=== PATIENT | male | born 1985 | race Caucasian/White ===

== ENCOUNTER 2017-04-25 17:40 | Emergency (ER) | payer OTHER ==
--- NOTE | ~2017-04-25 | ER ---
PATIENT'S NAME: AISHA ISAAC [facility] AGE: 31 Y [address] ROOM: [place] [address] LOCATION: [facility] ADMIT DATE: 04/25/2017 ER/Outpatient Report DISCHARGE DATE: 04/25/2017 FAMILY PHYSICIAN: Abdi Patel MD ATTENDING PHYSICIAN: Toya Hinson Time of Arrival: 1747 hours. Time of Evaluation: 1747 hours. CHIEF COMPLAINT: Headache, neck pain, shakiness. HISTORY OF PRESENT ILLNESS: The patient states he has worked outside all day today and he probably has not drunk as much fluid as he should. He states whenever he gets hot, he has problems with vertigo, headache, and vision changes. He states that he was on his way home from work when he developed these symptoms and came straight to the ER. States he feels anxious. He does have meclizine to take at home for his vertigo, but he did not take any. He states he does see Dr. Da Silva for cervical vertigo and trigger-point injection. He also sees Dr. Caroline Bowman for heart problems and Dr. Abdi Patel is his primary provider. He denies having any chest pain at this time, has not felt feverish or chilled, has not had increased sweating. ALLERGIES: NO KNOWN ALLERGIES. CURRENT MEDICATIONS: On his chart and reviewed by me. PAST MEDICAL HISTORY: Cervical vertigo, hypertension, heart murmur. PAST SURGICAL HISTORY: Negative. SOCIAL HISTORY: Denies use of tobacco, drugs, or alcohol. REVIEW OF SYSTEMS: All negative other than those mentioned in the HPI. PHYSICAL EXAMINATION: VITAL SIGNS: He weighed 86 kg, blood pressure is 147/83, pulse of 101, respirations 16, temperature of 98.1, O2 saturation was 98% on room air. PATIENT'S NAME: AISHA ISAAC [facility] AGE: 31 Y [address] ROOM: [place] [address] LOCATION: [facility] ADMIT DATE: 04/25/2017 ER/Outpatient Report DISCHARGE DATE: 04/25/2017 FAMILY PHYSICIAN: Abdi Patel MD ATTENDING PHYSICIAN: Toya Hinson GENERAL: He is awake, alert, and oriented x4. SKIN: [place], warm, and dry. RESPIRATIONS: Even and nonlabored. HEENT: Pupils are equal reactive to light. Negative nystagmus. Extraocular movement is intact. Oropharynx is clear. NECK: Supple. No lymphadenopathy. LUNGS: Lung sounds are clear throughout. HEART: Regular rate and rhythm. ABDOMEN: Soft, nondistended. Bowel sounds are present EXTREMITIES: He walked in with a steady even gait. Moves all extremities strongly and equally. NEURO: Cranial nerves 2 through 12 are grossly intact. LABORATORY DATA AND X-RAYS: Lab work was drawn. CBC is within normal limits. Chem panel showed a potassium of 3.2, otherwise within normal limits. EMERGENCY DEPARTMENT COURSE: Saline lock was initiated and the patient was given a liter of fluids. He was given meclizine 25 mg p.o. With potassium being 3.2, we did give him KCl 40 mEq p.o. He states he was feeling better after the fluids. Reports that he tends to get anxious when he does not feel good but is feeling better. IMPRESSION: 1. Dehydration. 2. Hypokalemia. PLAN: Home, rest, fluids. Discussed with him drinking at least one bottle of Gatorade or Powerade daily at work. He should rest in a cool place tonight and take his meclizine as needed for the dizziness. If his symptoms do not improve in the next 24 to 48 hours, he needs to follow with his primary provider. He verbalized understanding. SHAWNA PRABHAKAR APRN FOR MD YOBANI MEHTA/jacquie /[id number] d: 04/26/17219 t: 04/26/171809, OUTPATIENT REPORT
[2017-04-25 18:08] LABS: BASOPHIL # 0.1 K/uL (0.0-0.2); BASOPHIL % 0.7 %; EOSINOPHIL # 0.1 K/uL (0.0-0.5); EOSINOPHIL % 0.9 %; HEMATOCRIT 44.3 % (37.0-53.0); HEMOGLOBIN 16.2 g/dL (12.0-17.0); IMMATURE GRANULOCYTE % 0.5 %; LYMPHOCYTE # 2.3 K/uL (0.8-4.0); LYMPHOCYTE % 30.3 %; MCH 31.3 pg (27.0-34.0); MCHC 36.6 gm/dL (32.0-36.5); MCV 85.7 fl (83.0-98.0); MONOCYTE # 0.7 K/uL (0.0-1.0); MONOCYTE % 9.4 %; MPV 8.5 fl (9.4-12.4); NEUTROPHIL # (ANC) 4.5 K/uL (1.4-9.0); NEUTROPHIL % 58.2 %; NRBC % 0 /100WBC (0-0.00); PLATELET COUNT 244 K/uL (150-450); RBC 5.17 M/uL (4.00-6.00); RDW-CV 12.5 % (11.9-14.6); WBC 7.7 K/uL (4.0-11.0)
[2017-04-25 18:27] LABS: ALBUMIN 4.6 gm/dL (3.5-5.0); ALK PHOS 68 IU/L (33-138); ALT 29 IU/L (12-78); ANION GAP 11.2 (10.0-19.0); AST 17 IU/L (10-40); BLOOD UREA NITROGEN 12 mg/dL (6-24); CALCIUM 8.8 mg/dL (8.5-10.5); CHLORIDE 105 mMol/L (96-110); CO2 26 mMol/L (22-32); CREATININE 1.2 mg/dL (0.6-1.3); ESTIMATED GFR (MDRD EQUATION) > 60; POTASSIUM 3.2 mMol/L (3.7-5.1); SODIUM 139 mMol/L (135-145); TOTAL BILIRUBIN 0.7 mg/dL (0.0-1.5); TOTAL PROTEIN 8.2 g/dL (6.0-8.4)
== END 2017-04-25 19:39 | disposition disaster alternative care site (69) ==
LOC: GMED 17:40
PROVIDERS: Family Medicine
DX: E86.0 Dehydration (principal); E87.6 Hypokalemia; I10 Essential (primary) hypertension; Z79.899 Other long term (current) drug therapy
CPT/HCPCS: J7030

== ENCOUNTER → 2017-05-10 | Outpatient (CLI) | payer OTHER ==
--- NOTE | ~2017-05-10 | PUL ---
PATIENT'S NAME: AISHA ISAAC [facility] AGE: 31 Y [address] ROOM: [place] [address] LOCATION: [facility] ADMIT DATE: 05/10/2017 Pulmonary DISCHARGE DATE: FAMILY PHYSICIAN: Abdi Patel MD ATTENDING PHYSICIAN: Abdi Patel NAME OF PROCEDURE: Sleep study PROCEDURE DATE: 05/10/17 TECH: BAR Fraser TEST #: [facility]# [id number] TECHNICAL PARAMETERS: The patient was studied using International 10/20 measuring system. While the patient was studied, there was continuous monitoring of EEG (8 leads), EOG (2 leads), EKG (3 leads), submental EMG (3 leads), tibial (4 leads), respiratory inductive plethysmography (RIP) for thoracic and abdominal effort, oral and nasal airflow with a thermocouple and pressure transducer, and oximetry. The trailer technician also performed visual and auditory observations noting things like body position, patient's status, breath sounds, artifact, snoring level and patient comments. Continuous sound was monitored using a 2-way speaker system and video monitoring was performed using an infrared camera. Review of the entire study was performed epoch by epoch utilizing a single epoch and multiple epoch capability sleep system. MEDICAL HISTORY: The patient is a 31-year-old with daytime sleepiness and snoring. SLEEP STAGE SUMMARY: The patient was studied for 508 minutes of which he slept 373 minutes. He fell asleep in 43 minutes and slept for 73% of the night. Sleep architecture revealed a decrease in slow wave and REM sleep. RESPIRATORY SUMMARY: Oxygen saturations ranged from 89-94%. There were 2 apneas and 2 hypopneas for an apnea/hypopnea index normal at less than 1 event per hour. EKG SUMMARY: Average heart rate 63 beats per minute. No dysrhythmias were noted. LEG MOVEMENT SUMMARY: No clinically relevant periodic limb movements were noted. IMPRESSION: No evidence of significant sleep-disordered breathing. PATIENT'S NAME: AISHA ISAAC [facility] AGE: 31 Y [address] ROOM: [place] [address] LOCATION: [facility] ADMIT DATE: 05/10/2017 Pulmonary DISCHARGE DATE: FAMILY PHYSICIAN: Abdi Patel MD ATTENDING PHYSICIAN: Abdi Patel PLAN: Patient will receive results from the ordering provider. MD KARAN HERBERT /[id number] dtt: 05/13/17 1303 , Humphrey Trejo dtd: 05/13/17 1014
== END | disposition disaster alternative care site (69) ==
LOC: GSLP 20:25
DX: G47.9 Sleep disorder, unspecified (principal)